=== PATIENT | female | born 1995 | race African-American/Black ===

== ENCOUNTER 2020-07-20 10:46 | Emergency (ER) | payer OTHER, SELFPAY ==
--- NOTE | ~2020-07-20 | US_ITS ---
EXAMINATION: US pelvic complete w TV DATE: 07/20/2020 12:01 INDICATION: Lower abdomen pain Comparison:No prior studies for comparison. TECHNIQUE: Multiple transabdominal and endovaginal sonographic images of the pelvis performed. FINDINGS: The uterus measures 9.3 x 6.3 x 5.1 cm. The endometrial complex measures 3 mm. The right ovary measures 5.3 x 2.1 x 1.9 cm and the left ovary measures 3.2 x 2.5 x 2.7 cm. Superior medial to the right ovary there is a hyperechoic structure measuring 5.4 x 2.3 x 2.5 cm. Inferior med ial to the left ovary there is a hyperechoic structure measuring 4.8 x 2.5 x 3.8 cm. There is no free fluid in the pelvis. There are no abnormal masses seen on either side. IMPRESSION: 1. Hyperechoic structures in the adnexa bilaterally adjacent to the ovaries. Differential diagnosis i ncludes exophytic uterine fibroids, tubo-ovarian abscess, teratoma, hemorrhagic ovarian cysts, endome trioma as well as ovarian malignancies such as mucinous cystadenocarcinoma. Reviewed, dictated and finalized at location A. IMPRESSION: 1. Hyperechoic structures in the adnexa bilaterally adjacent to the ovaries. Di fferential diagnosis includes exophytic uterine fibroids, tubo-ovarian abscess, teratoma, hemorrhagic ovarian cysts, endometrioma as well as ovarian malignanc ies such as mucinous cystadenocarcinoma.
--- NOTE | ~2020-07-20 | CT_ITS ---
EXAMINATION: CT abdomen pelvis w con DATE: 07/20/2020 14:43 INDICATION: Abnormal ovarian masses. TECHNIQUE: Computed tomography (CT) of the abdomen and pelvis was performed with 100 mL Omnipaque 350 intravenous contrast. Automated exposure control and iterative reconstruction technique were employe d. The dose-length product was 290.64 mGy-cm. COMPARISON: Ultrasound pelvis 07/20/2020 FINDINGS: The visualized portions of the lung bases are clear without pneumonia or pleural effusion. The heart size is normal. No pericardial effusion. The liver, gallbladder, spleen, pancreas, adrenal glands, and kidneys are normal. There are no dilated loops of bowel. The appendix is normal. There ar e no pathologically enlarged lymph nodes. There is trace pelvic ascites. The uterus is unremarkable. There are tubular structures in the adnexa bilaterally, consistent with hydrosalpinx. There is mild l umbar spondylosis. IMPRESSION: 1. Tubular structures in the adnexa bilaterally, consistent with bilateral hydrosalpinx. Reviewed, dictated and finalized at location A. IMPRESSION: 1. Tubular structures in the adnexa bilaterally, consistent with bilateral hydr osalpinx.
[2020-07-20 10:51] VITALS: BP 105/77; PULSE 115; RESP 18; TEMP 37.3; O2SAT 98
--- NOTE | 2020-07-20 11:04 | ED.ABDPAIN ---
HPI - Abdominal Pain General Chief Complaint: Abdominal Pain Stated Complaint: abdominal pain/back pain Time Seen by Provider: 07/20/20 10:48 Source: patient Mode of arrival: ambulatory Limitations: no limitations History of Present Illness HPI narrative: This is a 25-year-old female that presents the emergency department for lower abdominal pain and low back pain times 3 days. Reports the pain is sharp in nature and has been constant. Reports it is relieved with [id number] pain medication. Is unsure if she has had abnormal vaginal discharge. Would like tested for STDs. Denies fever, nausea, vomiting, dysuria, hematuria. Related Data Home Medications Medication Instructions Recorded Confirmed No Home Medications 07/20/20 07/20/20 Allergies Allergy/AdvReac Type Severity Reaction Status Date / Time Penicillins Allergy Severe Hives Verified 07/20/20 10:54 PEARS Allergy Severe Hives Uncoded 07/20/20 10:54 Review of Systems Review of Systems: Narrative: CONSTITUTIONAL: Denies fever GASTROINTESTINAL: Reports abdominal pain, nausea, vomiting GENITOURINARY: Denies dysuria or hematuria. MUSCULOSKELETAL: Reports back pain, joint pain, and myalgia. All systems reviewed & are unremarkable except as noted in HPI and below PMFSH Social History Social History (Updated 07/20/20 @ 11:05 by Nory Schroeder PA-C) Smoking status: Never smoker Substance use: never Gender identity (if verbalized by the patient): Female Exam Narrative: Exam Narrative: GENERAL: Well-appearing, well-nourished, and in no acute distress. HEAD: Normocephalic, atraumatic. EYES: EOMI. CHEST: Clear to auscultation. No respiratory distress. No wheezes rales or rhonchi HEART: Regular rate and rhythm. No murmur heard. Normal peripheral pulses. ABDOMEN: Soft, nondistended, normal active bowel sounds. Mild tenderness to palpation throughout the lower abdomen without guarding. No CVA tenderness EXTREMITIES: Normal range of motion. No edema. SKIN: Warm, dry, no rash. NEURO: No focal deficits. Alert and oriented x3. PSYCH: Normal mood and affect PELVIC: Mild-moderate amount of off white cervical discharge. Mild redness surrounding the cervical os. No CMT Course Consultations Consultation #1: Spoke with Dr. Cheatham about patient and work-up will follow-up in clinic. Date: 07/20/20 Time: 15:48 Vital Signs Vital signs: Vital Signs Temperature 99.1 F 07/20/20 10:51 Pulse Rate 115 H 07/20/20 10:51 Respiratory Rate 18 07/20/20 10:51 Blood Pressure 105/77 07/20/20 10:51 Pulse Oximetry 98 07/20/20 10:51 Temperature 98.3 F 07/20/20 15:29 Pulse Rate 73 07/20/20 15:29 Respiratory Rate 15 07/20/20 15:29 Blood Pressure 102/68 07/20/20 15:29 Pulse Oximetry 98 07/20/20 15:29 MDM - Abdominal Pain MDM Narrative Medical decision making narrative: Patient presents the emergency department for abdominal/pelvic pain x3 days. She is afebrile and nontoxic-appearing. Tachycardic upon arrival, this improved with IV fluids. CBC with leukocytosis to 11.3. Metabolic panel and lipase without concerning findings. UA with greater than 75 white blood cells and 2+ leuk esterase, also many squamous epithelial cells. This will be sent for culture. Bedside test is negative. Pelvic ultrasound shows hyperechoic structures in the adnexa bilaterally adjacent to the ovaries. Differential includes exophytic uterine fibroids, tubo-ovarian abscess, teratoma, hemorrhagic ovarian cyst, or ovarian malignancies. CT scan of the abdomen and pelvis was obtained to help differentiate. This shows tubular structures in the adnexa bilaterally consistent with bilateral hydrosalpinx. Trichomonas was positive. Chlamydia, gonorrhea, and genital culture are pending. Patient given azithromycin, Flagyl and ceftriaxone in the ED. She will be sent home on oral doxycycline. Spoke with Dr. Cheatham about patient and work-up will follow-up in clinic. Isa
[2020-07-20 11:06] LABS: Basophils Absolute Auto 0.1 K/mm3 (0.0-0.1); Basophils Percent Auto 0.6 % (0.2-1.2); Eosinophils Absolute Auto 0.1 K/mm3 (0-0.3); Eosinophils Percent Auto 0.7 % (0-4.4); Hematocrit 40.3 % (37.0-47.0); Hemoglobin 13.7 g/dL (12.0-15.0); Immature Granulocyte Absolute 0.04 K/mm3 (0.00-0.031); Immature Granulocyte Percent A 0.4 % (0-0.5); Lymphocytes Absolute Auto 2.25 K/mm3 (0.9-3.2); Lymphocytes Percent Auto 19.8 % (18.3-44.2); Mean Corpuscular Hemoglobin 29.5 pg (26-34); Mean Corpuscular Volume 86.7 fl (80-100); Mean Platelet Volume 8.8 fl (7.4-10.4); Monocytes Absolute Auto 0.9 K/mm3 (0.1-0.6); Monocytes Percent Auto 7.7 % (2.6-8.5); Neutrophils Percent Auto 70.8 % (45.5-73.1); Platelet Count Result 186 k/mm3 (150-375); Red Blood Count 4.65 M/mm3 (4.2-5.4); Red Cell Distribution Width 12.5 % (11.5-14.5); White Blood Count 11.3 K/mm3 (4.5-10.0)
[2020-07-20 11:12] LABS: Add Urine Microscopic? YES; Appearance Urine Cloudy (Clear); Bacteria Urine Trace /hpf; Bilirubin Urine Negative (Negative); Blood Urine 1+ (Negative); Color Urine Yellow (Yellow); Glucose Urine UA Negative (Negative); Ketones Urine Negative (Negative); Leukocyte Esterase Ur 2+ LEU/UL (Negative); Mucus Urine Heavy /lpf; Nitrate Urine Negative (Negative); Protein Urine 1+ mg/dL (Negative); RBC Urine 51-75 /hpf (0-2); Specific Grav Ur 1.026 (1.001-1.035); Squamous Epithelial Cell Urine Many /hpf (Few); Urobilinogen Urine Negative mg/dL (<2.0); WBC Urine >75 /hpf
--- NOTE | 2020-07-20 11:15 | PC.NURSE ---
Cervical swabs sent to lab.
[2020-07-20 11:19] LABS: Alanine Aminotransferase 9 U/L (4-35); Albumin Level 4.6 g/dL (3.5-5.1); Alkaline Phosphatase 85 U/L (38-126); Anion Gap 8 mmol/L (8-16); Aspartate Amino Transferase 22 U/L (14-36); Bilirubin,Total 0.6 mg/dL (0.2-1.3); Blood Urea Nitrogen 10 mg/dL (7-17); Calcium 9.7 mg/dL (8.4-10.2); Carbon Dioxide 26 mmol/L (22-30); Chloride 102 mmol/L (98-107); Estimated CRCL calculation 91 ml/min; Estimated Glomerular Filt Rate > 60; Glucose 103 mg/dL (65-105); Lipase 34 U/L (23-300); Potassium 3.7 mmol/L (3.4-5.0); Sodium 136 mmol/L (137-145)
[2020-07-20] MEDS: KETOROLAC 30 MG/ML VIAL (*BKC) IV PUSH (11:21)
[2020-07-20] MEDS: SODIUM CHLORIDE 0.9% IV 1,000 ML 999 ML IV CONT (11:22)
--- NOTE | 2020-07-20 11:30 | PC.NURSE ---
Patient taken to Ultrasound via stretcher.
[2020-07-20 12:54] VITALS: BP 117/70; PULSE 85; RESP 17; O2SAT 100
--- NOTE | 2020-07-20 12:55 | PC.NURSE ---
PO contrast given
[2020-07-20] MEDS: metroNIDAZOLE 250 MG TABLET 2000 MG PO (13:22)
[2020-07-20] MEDS: cefTRIAXone 250 MG VIAL IM (13:37)
[2020-07-20] MEDS: LIDOCAINE HCL 1% LOCAL INJ 20 ML VIAL (13:38)
--- NOTE | 2020-07-20 13:59 | PC.NURSE ---
Renny TORRES contacted CT scan to see about getting scan done.
[2020-07-20 15:29] VITALS: BP 102/68; PULSE 73; RESP 15; TEMP 36.8; O2SAT 98
[2020-07-20] MEDS: AZITHROMYCIN 250 MG TABLET 1000 MG PO (15:36)
== END 2020-07-20 16:01 | disposition home or self-care (01) ==
PROVIDERS: Physician Assistant; Emergency Provider Emergency Medicine
DX: N73.9 Female pelvic inflammatory disease, unspecified (principal)
CPT/HCPCS: 36415; 74177; 76830; 76856; 80053; 81001; 81025; 83690; 85025; 87070; 87077; 87086; 87088; 87186; 87491; 87591; 87808; 96361; 96365; 96372; 96375; 99284; A9270; J0131; J0696; J1885; J7030; Q9967

== ENCOUNTER 2024-02-07 10:54 | Emergency (ER) | payer OTHER, SELFPAY ==
[2024-02-07 11:07] VITALS: BP 130/82; PULSE 100; RESP 14; TEMP 36.6; O2SAT 100
[2024-02-07 11:47] LABS: Strep Group A RT-PCR NOT DETECTED (Negative)
[2024-02-07 13:22] LABS: Influenza A QL RT-PCR Negative (Negative); Influenza B QL RT-PCR Positive (Negative); RSV RNA, RT-PCR Negative (Negative); SARS-CoV-2 RNA PCR Negative (Negative)
== END 2024-02-07 13:19 | disposition left against medical advice (07) ==
PROVIDERS: Emergency Provider Emergency Medicine; Referring Provider Emergency Medicine
DX: R05.9 Cough, unspecified (principal); Z20.822 Contact with and (suspected) exposure to COVID-19
CPT/HCPCS: 87637; 87651; 99199

== ENCOUNTER 2024-06-22 09:08 | Emergency (ER) | payer OTHER, SELFPAY ==
[2024-06-22] VITALS (11 sets, daily range): BP systolic 118–128; BP diastolic 68–76; PULSE 82–86; RESP 14–20; TEMP 37.3; O2SAT 99–100
--- NOTE | 2024-06-22 10:20 | ED.GENADULT ---
HPI - General Adult General Chief complaint: Unspecified Stated complaint: fatigue Time Seen by Provider: 06/22/24 09:55 History of Present Illness HPI narrative: This a 28-year-old female presenting ED with chief complaint of not feeling well. Patient was in [place] all weekend. During that time she was drinking a significant amount of alcohol. She was also wearing high heels the entire time. Patient says that her complaints now are fatigue, epigastric pain, and nausea. She also has an achy pain in her lower back that is worse with movement. She has not had any fevers chills chest pain difficulty breathing or urinary symptoms. No vaginal discharge or unprotected sex while in [place]. Related Data Allergies Allergy/AdvReac Type Severity Reaction Status Date / Time Penicillins Allergy Severe Hives Verified 06/22/24 09:48 PEARS Allergy Severe Hives Uncoded 06/22/24 09:48 [facility] Past Medical History Medical History (Updated 06/22/24 @ 12:34 by Jed Soriano MD) UTI (urinary tract infection) Surgical History Surgical History No significant past surgical history Social History Social History Smoking status: Never smoker Substance use: never Gender identity (if verbalized by the patient): Female Exam Narrative: APPEARANCE: No apparent distress. Head: atraumatic. EYES: EOMI, NOSE: Atraumatic NECK: Trachea midline RESPIRATORY: No increased rate of breathing clear to auscultation CARDIOVASCULAR: RRR, ABDOMINAL: Non-distended soft nontender no CVA tenderness MUSCULOSKELETAl: No obvious deformities NEURO: Alert. Moving 4/4 extremities SKIN:: Warm, dry. Normal color PSYCHIATRIC: Normal affect Course Vital Signs Vital signs: Vital Signs Pulse Rate 82 06/22/24 09:25 Respiratory Rate 20 06/22/24 09:25 Temperature 99.2 F 06/22/24 09:43 Pulse Rate 82 06/22/24 11:30 Respiratory Rate 16 06/22/24 09:44 Blood Pressure 128/74 06/22/24 11:30 Pulse Oximetry 100 06/22/24 11:30 Oxygen Delivery Room Air 06/22/24 09:43 Medical Decision Making [facility] Narrative Medical decision making narrative: -Course: 28-year-old female presenting with multiple complaints after a weekend in [facility]. Patient has epigastric discomfort and nausea. Patient being treated with Pepcid and Zofran. suspect alcohol-related gastritis. Patient also has lower back pain which is likely result of wearing high heels all weekend. Patient was given symptomatic treatment improvement. Physical exam is benign. Laboratory studies were unremarkable. Swabs were negative. Patient be discharged with return precautions. -DDX includes but is not limited to: Viral illness, alcoholic gastritis, lumbago, sciatica, kidney infection, pelvic inflammatory disease -Independent interpretation of studies: Labs reviewed. Viral swabs negative urine not indicative infection. -Interventions: 2 L normal saline, Pepcid Zofran Tylenol Robaxin toradol -Shared decision making / Disposition:discharged. -RX zofran Vital Signs Vital Signs: Vital Signs Pulse Rate 82 06/22/24 09:25 Respiratory Rate 20 06/22/24 09:25 Temperature 99.2 F 06/22/24 09:43 Pulse Rate 82 06/22/24 11:30 Respiratory Rate 16 06/22/24 09:44 Blood Pressure 128/74 06/22/24 11:30 Pulse Oximetry 100 06/22/24 11:30 Oxygen Delivery Room Air 06/22/24 09:43 Lab Data 06/22/24 11:21 06/22/24 11:21 Labs: Lab Results 06/22/24 06/22/24 06/22/24 Range/Units 11:06 11:07 11:21 WBC 10.1 H (4.5-10.0) K/mm3 RBC 4.84 (4.2-5.4) M/mm3 Hgb 14.7 (12.0-15.0) g/dL Hct 42.4 (37.0-47.0) % MCV 87.6 (80-100) fl MCH 30.4 (26-34) pg MCHC 34.7 (32-36) g/dl RDW 11.8 (11.5-14.5) % Plt Count 192 (150-375) k/mm3 MPV 8.9 (7.4-10.4) fl Immature Gran % (Auto) 0.3
[2024-06-22] MEDS: SODIUM CHLORIDE 0.9% IV 2,000 ML 999 ML IV CONT (10:52)
[2024-06-22] MEDS: KETOROLAC 15 MG/ML VIAL (*BKC) IV PUSH (10:53)
[2024-06-22] MEDS: FAMOTIDINE 20 MG/2 ML VIAL IV PUSH (10:53)
[2024-06-22] MEDS: ONDANSETRON INJ 4 MG/2 ML VIAL IV PUSH (10:53)
[2024-06-22] MEDS: methocarbamoL 750 MG TABLET 1500 MG PO (10:53)
[2024-06-22] MEDS: ACETAMINOPHEN 500 MG TABLET 1000 MG PO (10:54)
[2024-06-22 11:09] LABS: BEDSIDEPREGUCG Negative
[2024-06-22 11:17] LABS: Add Urine Microscopic? YES; Appearance Urine Clear (Clear); Bacteria Urine None Seen /hpf; Bilirubin Urine Negative (Negative); Blood Urine Negative (Negative); Color Urine Yellow (Yellow); Glucose Urine UA Negative (Negative); Ketones Urine Negative (Negative); Leukocyte Esterase Ur Trace LEU/UL (Negative); Nitrate Urine Negative (Negative); Non Pathogenic Casts 0-2; Protein Urine Negative (Negative); RBC Urine 0-2 /hpf (0-2); Specific Grav Ur 1.011 (1.001-1.035); Squamous Epithelial Cell Urine None Seen /hpf (Few); Urobilinogen Urine 0.2 mg/dL (<2.0); WBC Urine 0-5 /hpf (0-3); pH Urine >=9.0 (5.0-9.0)
[2024-06-22 11:30] LABS: Basophils Percent Auto 0.3 % (0.2-1.2); Eosinophils Absolute Auto 0.1 K/mm3 (0-0.3); Eosinophils Percent Auto 0.7 % (0-4.4); Hematocrit 42.4 % (37.0-47.0); Hemoglobin 14.7 g/dL (12.0-15.0); Immature Granulocyte Absolute 0.03 K/mm3 (0.00-0.031); Immature Granulocyte Percent A 0.3 % (0-0.5); Lymphocytes Absolute Auto 0.96 K/mm3 (0.9-3.2); Lymphocytes Percent Auto 9.5 % (18.3-44.2); Mean Corpuscular HGB Conc 34.7 g/dl (32-36); Mean Corpuscular Hemoglobin 30.4 pg (26-34); Mean Corpuscular Volume 87.6 fl (80-100); Mean Platelet Volume 8.9 fl (7.4-10.4); Monocytes Absolute Auto 0.5 K/mm3 (0.1-0.6); Monocytes Percent Auto 5.3 % (2.6-8.5); Neutrophils Absolute Auto 8.5 K/mm3 (1.3-6.7); Neutrophils Percent Auto 83.9 % (45.5-73.1); Platelet Count Result 192 k/mm3 (150-375); Red Blood Count 4.84 M/mm3 (4.2-5.4); Red Cell Distribution Width 11.8 % (11.5-14.5); White Blood Count 10.1 K/mm3 (4.5-10.0)
[2024-06-22 11:41] LABS: Alanine Aminotransferase 10 U/L (6-35); Albumin Level 4.6 g/dL (3.5-5.1); Alkaline Phosphatase 77 U/L (38-126); Anion Gap 12 mmol/L (4-12); Aspartate Amino Transferase 21 U/L (14-36); Bilirubin,Total 0.6 mg/dL (0.2-1.3); Blood Urea Nitrogen 6 mg/dL (7-17); Calcium 9.5 mg/dL (8.4-10.2); Carbon Dioxide 23 mmol/L (22-30); Chloride 100 mmol/L (98-107); Estimated CRCL calculation 91 ml/min; Estimated Glomerular Filt Rate > 60; Glucose 95 mg/dL (65-110); Lipase 75 U/L (23-300); Potassium 3.5 mmol/L (3.4-5.0); Sodium 135 mmol/L (137-145)
[2024-06-22 11:53] LABS: Influenza A QL RT-PCR Negative (Negative); Influenza B QL RT-PCR Negative (Negative); RSV RNA, RT-PCR Negative (Negative); SARS-CoV-2 RNA PCR Negative (Negative)
== END 2024-06-22 12:58 | disposition home or self-care (01) ==
PROVIDERS: Emergency Provider Emergency Medicine
DX: K29.70 Gastritis, unspecified, without bleeding (principal); M54.50 Low back pain, unspecified; Z20.822 Contact with and (suspected) exposure to COVID-19; Z87.440 Personal history of urinary (tract) infections
CPT/HCPCS: 36415; 80053; 81001; 81025; 83690; 85025; 87637; 96361; 96374; 96375; 99284; A9270; J1885; J2405; J7030